=== PATIENT | male | born 1995 | race Caucasian/White ===

== ENCOUNTER → 2024-02-20 07:44 | Outpatient (REF) | payer BC, SELFPAY | LOC: PAVMRI 07:44 | PROVIDERS: ATTENDING PHYSICIAN Pain Medicine Interventional Pain Medicine | DX: M54.12 Radiculopathy, cervical region (principal) | CPT/HCPCS: 72141 ==

== ENCOUNTER → 2024-09-29 14:00 | Outpatient (REF) | payer BC, SELFPAY | LOC: CLAB 14:00 | PROVIDERS: ATTENDING PHYSICIAN Otolaryngology | DX: M54.2 Cervicalgia (principal) | CPT/HCPCS: 87070; 87205 ==

== ENCOUNTER → 2024-10-25 06:51 | Outpatient (REF) | payer BC, SELFPAY | LOC: HWRAD 06:51 | PROVIDERS: ATTENDING PHYSICIAN Student in an Organized Health Care Education/Training Program | DX: R22.1 Localized swelling, mass and lump, neck (principal) | CPT/HCPCS: 76536 ==

== ENCOUNTER → 2025-03-02 12:16 | Outpatient (REF) | payer BC, SELFPAY | LOC: PAVMRI 12:16 | PROVIDERS: ATTENDING PHYSICIAN Ophthalmology; FAMILY PHYSICIAN Psychiatry & Neurology Neurology | DX: H02.422 Myogenic ptosis of left eyelid (principal); H16.223 Keratoconjunctivitis sicca, not specified as Sjogren's, bilateral | CPT/HCPCS: 70543; A9575 ==